=== PATIENT | male | born 1955 | race Caucasian/White ===

== ENCOUNTER 2018-05-29 13:25 | Emergency (ER) | payer OTHER ==
[~2018-05-29] VITALS: Ht 182.9 cm; Wt 99.9 kg
[~2018-05-29 13:25] MED LIST: DIPH25TA24 PO; EPP3/2 IM; FENO134C2 PO; GLC/500 PO; METO-479 PO; PARO20TA PO; SIMV20TA5 PO
[2018-05-29 13:28] VITALS: Ht 182.9 cm; Wt 99.9 kg
[2018-05-29] MEDS ORDERED: METHYLPREDNISOLONE 125 MG VIAL IV STA (13:32)
[2018-05-29] MEDS ORDERED: ALBUT/IPRATROP 3MG/0.5MG NEB 3 ML VIAL INH STA (13:32)
--- NOTE | 2018-05-29 13:35 | EMERGENCY ROOM VISIT NOTE ---
History Report prepared by Rubin: Erum Rahman Under the Supervision of: Dr. Kervin Jackson M.D. First contact with patient: 13:26 Chief Complaint: ALLERGIC REACTION Stated Complaint: Bee sting, Facial swelling History of Present Illness The patient is a 62 year old white male with a past medical history of DM2, HLD , and HTN who presents to the ED with a cc of an allergic reaction to bee stings beginning shortly prior to arrival. Positive facial swelling and itchiness. Negative shortness of breath, chest pain, nausea, vomiting. The patient states that he has an EpiPen but that he did not use it. Per EMS, the patient has a history of anaphylaxis and was once intubated. Per EMS, the patient took 3 Benadryl after the stings. The patient states that Benadryl alleviated his symptoms. The patient states that he smokes. Source of History: patient, EMS Onset: shortly prior to arrival Position: other (generalized) Quality: other (allergic reaction to bee sting ) Modifying Factors (Relieving): other (Benadryl) Associated Symptoms: No chest pain, No SOB, No nausea, No vomiting Note: additional symptoms: swelling, itchiness Review of Systems See HPI for pertinent positives and negatives. A total of ten systems were reviewed and were otherwise negative. Past Medical & Surgical Medical Problems: (1) DM2 (diabetes mellitus, type 2) (2) HLD (hyperlipidemia) (3) Hypertension (4) Tobacco Use Disorder Family History Patient reports no known family medical history. Social History Smoking Status: Current Every Day Smoker Alcohol Use: occasionally Marital Status: Housing Status: lives with family Occupation Status: employed Current/Historical Medications Scheduled Diphenhydramine Hcl (Benadryl), 50 MG PO DIRECTED Epinephrine (Epipen), 0.3 MG IM UD Epinephrine (Epipen), 0.3 MG IM UD Epinephrine (Epipen), 0.3 MG IM UD Fenofibrate (Tricor ), 134 MG PO DAILY Metformin Hcl (Glucophage), 500 MG PO BID Metoprolol Succinate (Toprol Xl), 100 MG PO DAILY Paroxetine Hcl (Paxil), 20 MG PO DAILY Prednisone (Prednisone), 50 MG PO DAILY Simvastatin (Zocor), 20 MG PO QPM Scheduled PRN Ondansetron Hcl (Zofran), 4 MG PO Q6H PRN for Nausea Allergies Coded Allergies: BEE STING (Unverified Allergy, Severe, SWELLING (SEVERE), 05/23/13) Physical Exam Vital Signs Date Time Temp Pulse Resp B/P (MAP) Pulse Ox O2 Delivery O2 Flow Rate FiO2 05/29/18 14:48 Room Air 05/29/18 14:45 60 20 145/85 98 Room Air 05/29/18 14:02 71 17 97 Room Air 05/29/18 14:01 140/81 05/29/18 13:57 67 20 97 Room Air 05/29/18 13:28 97 Room Air 05/29/18 13:28 37.0 75 146/88 97 Room Air Physical Exam GENERAL: Awake, alert, well-appearing, NAD HENT: Normocephalic, atraumatic. EYES: Normal conjunctiva. Sclera non-icteric. PERRL. No anisocoria. NECK: Supple. No nuchal rigidity. FROM. RESPIRATORY: Non-stridulous wheezing right base, no rhonchi, no crackles CARDIAC: RRR, no MRG ABDOMEN: Soft, NTND, BS+ MSK: No chest wall TTP, no LE edema NEURO: GCS 15, CN 2-12 intact, moves all 4s on command SKIN: No jaundice noted. Mild urticaria to the left forearm and posterior neck. Medical Decision & Procedures Medications Administered Medications (Trade) Dose Ordered Sig/Makenna Route Start Time Stop Time Status Last Admin Dose Admin Methylprednisolone Sodium Succinate (Solu-Medrol IV) 125 mg NOW STAT IV 05/29/18 13:32 05/29/18 13:33 DC 05/29/18 13:59 125 MG Famotidine (Pepcid Tab) 20 mg NOW ONCE PO 05/29/18 13:45 05/29/18 13:46 DC 05/29/18 13:59 20 MG Albuterol/ Ipratropium (Duoneb) 3 ml ONE STAT INH 05/29/18 13:32 05/29/18 13:33 DC 05/29/18 13:59 3 ML Ondansetron HCl (Zofran Inj) 4 mg NOW STAT IV 05/29/18 14:25 05/29/18 14:26 DC 05/29/18 14:40 4 MG Sodium Chloride 500 ml @ 999 mls/hr Q31M STAT IV 05/29/18 14:25 05/29/18 14:55 DC 05/29/18 14:25 999 MLS/HR ED Course 1327: The patient was evaluated in room A3. A complete history and physical exam was performed. 1500: I checked on the patient. His rash resolved and he sounds, looks, and feels well. 1520: I reevaluated the patient. Discussed results and discharge instructions: He verbalized understanding and agreement. The patient is ready for discharge. Medical Decision The patient is a 62 year old white male with a past medical history of DM2, HLD , and HTN who presents to the ED with a cc of an allergic reaction to bee stings beginning shortly prior to arrival. Nursing notes reviewed. Ancillary studies and prior records reviewed. Differential diagnosis: Etiologies such as allergic reaction, anaphylaxis, urticaria, Funez-Konrad syndrome, toxic epidermal necrolysis, erythema multiforme, cellulitis, as well as others were entertained. Patient was seen and evaluated the bedside. The patient had been stung by 2 questionable wasps or bees. The patient did take some Benadryl prior to arrival. No other medications were given in route. The patient is a smoker does have some trace wheezing in the right chest. Patient is otherwise non- stridulous and is not complaining of any swelling or difficulty with breathing. Patient did have an IV placed and he was given Solu-Medrol. The patient did have one episode of vomiting so the Pepcid was not get down. The patient was given some Zofran and IV fluids. The ER pharmacist did call his local pharmacy he can have a generic substitute of an EpiPen if this is ordered. The vomiting may be secondary to the steroids that were given as this can cause some GI upset. Patient was counseled on smoking cessation. Upon reassessment the patient was able tolerate p.o. Patient did not have any worsening wheezing throats swelling or urticarial rash. Patient is non- stridulous. Patient was given strict follow-up, discharge, and return precautions. All questions were answered. Patient was deemed suitable for outpatient follow-up at this time. Patient agreed with the plan of care and was safely discharged home. Medication Reconcilliation Current Medication List: was personally reviewed by me Blood Pressure Screening Patient's blood pressure: Elevated blood pressure Blood pressure disposition: Referred to PCP Impression Primary Impression: Allergic reaction Additional Impressions: Urticaria Encounter for smoking cessation counseling Scribe Attestation The scribe's documentation has been prepared under my direction and personally reviewed by me in its entirety. I confirm that the note above accurately reflects all work, treatment, procedures, and medical decision making performed by me. Departure Information Dispostion Home / Self-Care Prescriptions Epinephrine (EPIPEN) 0.3 Mg/0.3 Ml Inj 0.3 MG IM UD, #1 PEN Prov: Kervin Jackson M.D. 05/29/18 Prednisone (PREDNISONE) 50 Mg Tab 50 MG PO DAILY for 4 Days, #4 TAB Prov: Kervin Jackson M.D. 05/29/18 Ondansetron Hcl (ZOFRAN) 4 Mg Tab 4 MG PO Q6H Y for Nausea, #12 TAB Prov: Kervin Jackson M.D. 05/29/18 Referrals Lyndon Trevino M.D. (PCP) Forms HOME CARE DOCUMENTATION FORM, IMPORTANT VISIT INFORMATION Patient Instructions ED Bite Sting Insect Gen Allergic React, ED Smoking Cessation, [facility] Additional Instructions Please return to the emergency department if you have worsening or recurrent symptoms not amenable to at-home treatment. Please call for a follow-up appointment with her primary care physician. Please take your medications as prescribed. If you have other concerns and/or complaints please feel free to also call your primary care physician's office or return the ED for further evaluation, management, and treatment. You may take 600 mg Ibuprofen every 6 hours as needed for pain/fever with food unless told by your physician not to take NSAIDs. You may take tylenol 650 mg every 6 hours as needed for pain/fever unless told by your physician to not take it or have liver problems. You may take motrin and tylenol separately or at the same time. Take your medications as prescribed. Please take your steroids preferably in the morning and with food as they may cause some upset stomach and cause you to be very awake and alert. You have been examined and treated today on an emergency basis only. This is not a substitute for, or an effort to provide, complete comprehensive medical care. It is impossible to recognize and treat all injuries or illnesses in a single emergency department visit. It is therefore important that you follow up closely with [facility], your PCP, and/or your specialist(s). Call as soon as possible for an appointment. Thank you for your time and consideration. I look forward to speaking with you again soon. Please don't hesitate to call us if you have any questions. Problem Qualifiers Primary Impression: Allergic reaction Encounter type: initial encounter Qualified Codes: T78.40XA - Allergy, unspecified, initial encounter
[2018-05-29] MEDS ORDERED: FAMOTIDINE 20 MG TAB PO ONE (13:45)
[2018-05-29] MEDS ORDERED: PRED50TA PO (14:24)
[2018-05-29] MEDS ORDERED: ONDA4TAB46 PO (14:24)
[2018-05-29] MEDS ORDERED: SODIUM CHLORIDE 0.9% 500ML 500 ML IV STA (14:25)
[2018-05-29] MEDS ORDERED: ONDANSETRON INJ 2 MG/ML 2 ML VIAL IV STA (14:25)
[2018-05-29] MEDS ORDERED: EPP3/2 IM (15:03)
[2018-05-29 15:30] VITALS: BP 154/92; PULSE 58; TEMP 37; O2SAT 96
== END 2018-05-29 15:31 | disposition home or self-care (01) ==
LOC: EDBD 13:25 → C.EDA 13:26
DX: T63.441A Toxic effect of venom of bees, accidental (unintentional), initial encounter (principal); L50.9 Urticaria, unspecified; R11.10 Vomiting, unspecified; R06.2 Wheezing; I10 Essential (primary) hypertension; Z71.6 Tobacco abuse counseling; F17.200 Nicotine dependence, unspecified, uncomplicated; E78.5 Hyperlipidemia, unspecified; E11.9 Type 2 diabetes mellitus without complications; Z79.84 Long term (current) use of oral hypoglycemic drugs; Z91.030 Bee allergy status